=== PATIENT | female | born 2005 | race Two or more races ===

== ENCOUNTER 2023-01-16 09:50 | Inpatient (IN) | payer OTHER ==
[2023-01-16 11:22] LABS: BASO % 0.1 % (0-2.0); EOS % 0.3 % (0-4.5); HEMATOCRIT 39.7 % (32.4-45.2); HEMOGLOBIN 13.2 GM/dL (10.7-15.3); LYMPH % 18.9 % (8-40); MCH 29.4 pg (25.7-33.7); MCHC 33.3 g/dl (32.0-36.0); MEAN CELL VOLUME 88.4 fl (80-96); MEAN PLT VOLUME 7.1 fl (7.5-11.1); MONO % 6.4 % (3.8-10.2); NEUT % 74.3 % (42.8-82.8); PLATELET COUNT 276 10^3/uL (134-434); RBC 4.49 M/mm3 (3.60-5.2); RDW 13.5 % (11.6-15.6); WHITE BLOOD COUNT 8.5 K/mm3 (4.0-10.0)
[2023-01-16 11:29] LABS: INR 0.97 (0.83-1.09); PROTHROMBIN TIME (PATIENT) 11.3 SEC (9.7-13.0)
[2023-01-16 11:31] LABS: ACTIVATED PTT 27.4 SECONDS (25.2-36.5)
[2023-01-16 11:41] LABS: POTASSIUM 3.9 mmol/L (3.5-5.1)
[2023-01-16 11:45] LABS: CALCIUM 9.1 mg/dL (8.5-10.1)
[2023-01-16 11:46] LABS: BLOOD UREA NITROGEN 8.9 mg/dL (7-18)
[2023-01-16 11:52] LABS: CREATININE 0.5 mg/dL (0.55-1.3)
[2023-01-16] MEDS ORDERED: DINOPROSTONE 10 MG VAGINAL SUPPOSITORY VG ONE (12:00)
[2023-01-16] MEDS ORDERED: ELECTROLYTE-148 SOLN 1,000 ML IV SCH (12:00)
[2023-01-16 12:19] VITALS: BMI 24.0
[2023-01-16 13:13] LABS: HIV INTERPRETATION NEGATIVE (NEGATIVE)
[2023-01-16] MEDS ORDERED: AMPICILLIN SODIUM 2 GM VIAL ONE (17:39)
[2023-01-16] MEDS ORDERED: PROMETHAZINE HCL 25 MG/1 ML VIAL IVPUSH ONE (17:56)
[2023-01-16] MEDS ORDERED: BUTORPHANOL TARTRATE 2 MG/ML VIAL IVPUSH ONE (17:56)
[2023-01-16] MEDS ORDERED: AMPICILLIN SODIUM 2 GM VIAL IVPB ONE (18:00)
[2023-01-16] MEDS ORDERED: BUTORPHANOL TARTRATE 1 MG/ML VIAL ONE (18:12)
[2023-01-16] MEDS ORDERED: PROMETHAZINE HCL 25 MG/1 ML VIAL ONE (18:13)
[2023-01-16] MEDS ORDERED: PROMETHAZINE HCL 25 MG/1 ML VIAL IVPB ONE (18:15)
[2023-01-16] MEDS ORDERED: BUTORPHANOL TARTRATE 1 MG/ML VIAL IVPB ONE (18:30)
[2023-01-16] MEDS ORDERED: FENTANYL/BUPIVACAINE/NS/PF - PCEA - 50 ML DISP.SYRIN EP ONE (20:44)
[2023-01-16] MEDS ORDERED: FENTANYL CITRATE/PF 50 MCG/ML VIAL ONE (20:49)
[2023-01-16] MEDS ORDERED: NALOXONE HCL 0.4 MG/ML VIAL IVPUSH PRN (21:29)
[2023-01-16] MEDS ORDERED: FENTANYL/BUPIVACAINE/NS/PF - PCEA - 50 ML DISP.SYRIN EP SCH (21:30)
[2023-01-16] MEDS ORDERED: AMPICILLIN SODIUM 1 GM VIAL ONE (21:41)
[2023-01-16] MEDS ORDERED: AMPICILLIN - 1 GM in SODIUM CHLORIDE 100 ML IVPB SCH (21:45)
[2023-01-16] MEDS ORDERED: OXYTOCIN 30 UNITS in 0.9% NS 30 UNIT/500 ML INFUS.BAG IVPB SCH (21:45)
[2023-01-16] MEDS ORDERED: OXYTOCIN 20 UNITS in 0.9% NS 20 UNIT/1,000 ML INFUS.BAG IV ONE (22:19)
[2023-01-16] MEDS ORDERED: BENZOCAINE 28 GM HEMORRHOIDAL OINTMENT TP PRN (22:46)
[2023-01-16] MEDS ORDERED: METHYLERGONOVINE MALEATE 0.2 MG/1 ML AMP IM PRN (22:46)
[2023-01-16] MEDS ORDERED: IBUPROFEN 600 MG TABLET (FP) PO PRN (22:46)
[2023-01-16] MEDS ORDERED: ACETAMINOPHEN 325 MG TABLET (FP) PO PRN (22:46)
[2023-01-16] MEDS ORDERED: BISACODYL 10 MG SUPP.RECT RC PRN (22:46)
[2023-01-16] MEDS ORDERED: BENZOCAINE 20% 57 GM BOTTLE TP PRN (22:46)
[2023-01-16] MEDS ORDERED: WITCH HAZEL 50% (TUCKS) 40 PAD/JAR PAD TP PRN (22:46)
[2023-01-16] MEDS ORDERED: oxyCODONE HCL 5 MG TABLET PO PRN (22:46)
[2023-01-16] MEDS ORDERED: OXYTOCIN 20 UNITS in 0.9% NS 20 UNIT/1,000 ML INFUS.BAG IV SCH (23:00)
[2023-01-16 23:11] LABS: CORD BASE EXCESS -5.1 mmol/L (0-2); CORD HCO3 21.3 mmHg (20-29); CORD PCO2 44.2 mmHg (30-78); CORD pH 7.3 (7.14-7.44)
[2023-01-17 07:39] LABS: BASO % 0.1 % (0-2.0); HEMATOCRIT 35.8 % (32.4-45.2); HEMOGLOBIN 11.6 GM/dL (10.7-15.3); LYMPH % 12.5 % (8-40); MCH 29.1 pg (25.7-33.7); MCHC 32.4 g/dl (32.0-36.0); MEAN CELL VOLUME 89.6 fl (80-96); MEAN PLT VOLUME 7.6 fl (7.5-11.1); MONO % 6.1 % (3.8-10.2); NEUT % 81.3 % (42.8-82.8); PLATELET COUNT 245 10^3/uL (134-434); RDW 13.2 % (11.6-15.6); WHITE BLOOD COUNT 15.6 K/mm3 (4.0-10.0)
[2023-01-17] MEDS ORDERED: SENNOSIDES/DOCUSATE COMBO (SENNA PLUS) TABLET (UD) PO PRN (22:00)
[2023-01-17 23:39] VITALS: TEMP 98.6
[2023-01-18 12:14] VITALS: BP 117/67; PULSE 86; RESP 20
== END 2023-01-18 14:05 | disposition home or self-care (01) | DRG 560 ==
LOC: JLDR 09:50 → J3W 01-17 01:25
PROVIDERS: ADMIT Obstetrics & Gynecology; ATTEND Obstetrics & Gynecology
PROC: 10E0XZZ Delivery of Products of Conception, External Approach (ICD-10-PCS; principal; 2023-01-16)
DX: O36.5930 Maternal care for other known or suspected poor fetal growth, third trimester, not applicable or unspecified (principal); O69.81X0 Labor and delivery complicated by cord around neck, without compression, not applicable or unspecified; Z3A.38 38 weeks gestation of pregnancy; Z37.0 Single live birth
CPT/HCPCS: 36415; 36600; 80048; 82803; 85025; 85610; 85730; 86780; 86850; 86900; 86901; 87389; 88307-TC